=== PATIENT | female | born 1985 | race African-American/Black ===

== ENCOUNTER 2018-05-18 09:52 | Emergency (ER) | payer SELFPAY ==
[~2018-05-18] VITALS: Ht 167.6 cm; Wt 81.6 kg
--- NOTE | 2018-05-18 09:57 | NUR ---
ED Nurse Note: Pt came into the ER w/ complaints of abdominal pain since 0800 this morning. Pt complains of nausea and vomiting. Per pt, she has had 3 episodes of vomiting w/ bright yellow emesis. Pt is rating the pain a 10/10 in the abdominal area. Non radiating. A + O x4. Ambulatory. Skin warm to touch.
[2018-05-18] MEDS ORDERED: NKM (10:01)
[2018-05-18 10:03] VITALS: BP 118/87
[2018-05-18] MEDS ORDERED: Metoclopramide 10mg/2ml Inj IVP ONE (10:15)
[2018-05-18] MEDS ORDERED: Morphine Sulfate 4mg/ml Inj (IV USE ONLY) IVP ONE (10:15)
[2018-05-18] MEDS ORDERED: DiphenhydrAMINE 50mg/ml Inj IVP ONE (10:15)
[2018-05-18 10:31] LABS: BASOPHILS % (AUTO) 1.1 % (0.0-2.0); EOSINOPHILS % (AUTO) 0.6 % (0.0-3.0); HEMATOCRIT 40.2 % (37.0-47.0); MEAN CORPUSCULAR VOLUME 84 FL (80-99); MONOCYTES % (AUTO) 5.4 % (1.0-10.0); NEUTROPHILS % (AUTO) 56.9 % (45.0-75.0); PLATELET COUNT 311 K/UL (150-450); RED BLOOD COUNT 4.81 M/UL (4.20-5.40); RED CELL DISTRIBUTION WIDTH 11.9 % (11.6-14.8); WHITE BLOOD COUNT 11.7 K/UL (4.8-10.8)
[2018-05-18 10:37] LABS: ANION GAP 15 mmol/L (5-15); BLOOD UREA NITROGEN 11 mg/dL (7-18); CALCIUM 8.6 MG/DL (8.5-10.1); CARBON DIOXIDE 23 MMOL/L (21-32); CHLORIDE 107 MMOL/L (98-107); CREATININE 0.9 MG/DL (0.55-1.30); POTASSIUM 3.6 MMOL/L (3.5-5.1); SODIUM 145 MMOL/L (136-145)
[2018-05-18 10:41] LABS: ALANINE AMINOTRANSFERASE 24 U/L (12-78); ALBUMIN 3.5 G/DL (3.4-5.0); ALKALINE PHOSPHATASE 59 U/L (46-116); ASPARTATE AMINO TRANSFERASE 10 U/L (15-37); BILIRUBIN,TOTAL 0.2 MG/DL (0.2-1.0)
[2018-05-18 11:41] LABS: APPEARANCE,URINE CLEAR; BILIRUBIN, URINE NEGATIVE (NEGATIVE); GLUCOSE, URINE (UA) NEGATIVE (NEGATIVE); KETONES,URINE 1+ (NEGATIVE); LEUKOCYTE ESTERASE ,URINE 1+ (NEGATIVE); NITRITE,URINE NEGATIVE (NEGATIVE); PH,URINE 7 (4.5-8.0); PROTEIN,URINE 1+ (NEGATIVE); UROBILINOGEN,URINE 1 MG/DL (0.0-1.0)
[2018-05-18 11:43] LABS: COLOR,URINE YELLOW
--- NOTE | 2018-05-18 12:16 | Emergency Room Report ---
History of Present Illness General Chief Complaint: Abdominal Pain Source: Patient, Family Member Present Illness HPI Patient presents with severe epigastric pain and vomiting which began a few hours ago. Pain is severe, burning aching and epigastric, not radiating. No fevers. She was drinking last night. No vomit blood. She has been constipated. See several weeks ago at walk in. Same pain but not last. Told related to constipation. She was given an Rx for Colace. Not extremely helpful. Not . No family h/o gall stones. No dietary intolerance. No dysuria. No joint pain, headache, dyspnea, chest pain. Allergies: Coded Allergies: No Known Allergies (Unverified , 05/18/18) Patient History Past Medical History: see triage record Social History: Reports: smoking, alcohol use, drug use - THC Social History Narrative with sister Reviewed Nursing Documentation: PMH: Agreed; PSxH: Agreed Nursing Documentation-PM Past Medical History: No Stated History Review of Systems All Other Systems: negative except mentioned in HPI Physical Exam Vital Signs Date Time Temp Pulse Resp B/P (MAP) Pulse Ox O2 Delivery O2 Flow Rate FiO2 05/18/18 09:59 97.5 84 16 118/87 100 Room Air 05/18/18 10:03 100 Sp02 EP Interpretation: reviewed, normal General Appearance: alert, GCS 15, mild distress Head: normocephalic Eyes: bilateral eye normal inspection, bilateral eye PERRL, bilateral eye EOMI ENT: moist mucus membranes Neck: supple Respiratory: lungs clear, normal breath sounds Cardiovascular #1: regular rate, rhythm Cardiovascular #2: 2+ radial (R) Gastrointestinal: normal inspection, normal bowel sounds, no mass, non- distended, no guarding, no rebound, tenderness Genitourinary: no CVA tenderness Musculoskeletal: back normal, normal range of motion Neurologic: alert, oriented x3, grossly normal Psychiatric: anxious Skin: normal inspection, warm/dry Medical Decision Making Diagnostic Impression: Primary Impression: Abdominal pain, acute, epigastric Additional Impressions: Constipation Qualified Codes: K59.00 - Constipation, unspecified Alcohol use ER Course Patient presents with epigastric pain, NV. DDX: pancreatitis, gastritis, gall bladder disease, UTI, GERD amongst others. Evaluation with labs. Consideration for ultrasound if labs suggest gall bladder problem or continued pain. Treatment with IV hydration, Reglan, benadryl, pepcid and morphine. Labs with min elevated WBC, no left shift. LFTs and lipase normal. UA clear. BAL 37. + THC (urine after morphine + opiates). Pain resolved and no vomiting. Tolerate oral intake. Sister upset at no ultrasound. Discussed findings and no indication under this setting with improvement. Also concerned about constipation. I discussed treatment plan and outpatient observation. Patient stable for outpatient observation and treatment. Laboratory Tests Test 05/18/18 10:00 05/18/18 11:00 White Blood Count 11.7 K/UL (4.8-10.8) H Red Blood Count 4.81 M/UL (4.20-5.40) Hemoglobin 13.0 G/DL (12.0-16.0) Hematocrit 40.2 % (37.0-47.0) Mean Corpuscular Volume 84 FL (80-99) Mean Corpuscular Hemoglobin 27.1 PG (27.0-31.0) Mean Corpuscular Hemoglobin Concent 32.4 G/DL (32.0-36.0) Red Cell Distribution Width 11.9 % (11.6-14.8) Platelet Count 311 K/UL (150-450) Mean Platelet Volume 8.2 FL (6.5-10.1) Neutrophils (%) (Auto) 56.9 % (45.0-75.0) Lymphocytes (%) (Auto) 36.0 % (20.0-45.0) Monocytes (%) (Auto) 5.4 % (1.0-10.0) Eosinophils (%) (Auto) 0.6 % (0.0-3.0) Basophils (%) (Auto) 1.1 % (0.0-2.0) Prothrombin Time 10.7 SEC (9.30-11.50) Prothrombin Time INR 1.0 (0.9-1.1) PTT 24 SEC (23-33) Sodium Level 145 MMOL/L (136-145) Potassium Level 3.6 MMOL/L (3.5-5.1) Chloride Level 107 MMOL/L (98-107) Carbon Dioxide Level 23 MMOL/L (21-32) Anion Gap 15 mmol/L (5-15) Blood Urea Nitrogen 11 mg/dL (7-18) Creatinine 0.9 MG/DL (0.55-1.30) Estimate Glomerular Filtration Rate > 60 mL/min (>60) Glucose Level 110 MG/DL (74-106) H Calcium Level 8.6 MG/DL (8.5-10.1) Total Bilirubin 0.2 MG/DL (0.2-1.0) Aspartate Amino Transferase (AST) 10 U/L (15-37) L Alanine Aminotransferase (ALT) 24 U/L (12-78) Alkaline Phosphatase 59 U/L (46-116) Total Protein 6.9 G/DL (6.4-8.2) Albumin 3.5 G/DL (3.4-5.0) Globulin 3.4 g/dL Albumin/Globulin Ratio 1.0 (1.0-2.7) Lipase 63 U/L (73-393) L Human Chorionic Gonadotropin, Qual Negative (NEGATIVE) Serum Alcohol 37 mg/dL Urine Color Yellow Urine Appearance Clear Urine pH 7 (4.5-8.0) Urine Specific [place] 1.015 (1.005-1.035) Urine Protein 1+ (NEGATIVE) H Urine Glucose (UA) Negative (NEGATIVE) Urine Ketones 1+ (NEGATIVE) H Urine Blood 1+ (NEGATIVE) H Urine Nitrite Negative (NEGATIVE) Urine Bilirubin Negative (NEGATIVE) Urine Urobilinogen 1 MG/DL (0.0-1.0) H Urine Leukocyte Esterase 1+ (NEGATIVE) H Urine RBC 0-2 /HPF (0 - 2) Urine WBC 0-2 /HPF (0 - 2) Urine Squamous Epithelial Cells Few /LPF (NONE/OCC) Urine Bacteria Few /HPF (NONE) Urine Mucus Moderate /LPF (NONE/OCC) H Urine Opiates Screen Positive (NEGATIVE) H Urine Barbiturates Screen Negative (NEGATIVE) Phencyclidine (PCP) Screen Negative (NEGATIVE) Urine Amphetamines Screen Negative (NEGATIVE) Urine Benzodiazepines Screen Negative (NEGATIVE) Urine Cocaine Screen Negative (NEGATIVE) Urine Marijuana (THC) Screen Positive (NEGATIVE) H Last Vital Signs Date Time Temp Pulse Resp B/P (MAP) Pulse Ox O2 Delivery O2 Flow Rate FiO2 05/18/18 12:42 98.0 74 16 124/68 99 Room Air 100 Status: improved Disposition: HOME, SELF-CARE Condition: Improved Scripts Ondansetron Odt* (ZOFRAN ODT*) 4 Mg Tab.rapdis 4 MG BC EVERY 8 HOURS, #6 TAB 0 Refills Prov: Erick Chance MD 05/18/18 Lactulose (LACTULOSE*) 20 Gm/30 Ml Solution 30 ML ORAL BID for constipation, #240 ML 0 Refills Prov: Erick Chance MD 05/18/18 Mag Hydrox/Al Hydrox/Simeth (MAALOX MAXIMUM STRENGTH SUSP) 355 Ml Oral.susp 30 ML PO Q6HR, #240 ML Prov: Erick Chance MD 05/18/18 Acetaminophen (Tylenol) 325 Mg Tablet 650 MG ORAL Q6H PRN for Prn Pain/Headache/Temp > 101, #20 TAB 0 Refills Prov: Erick Chance MD 05/18/18 Famotidine (PEPCID AC) 20 Mg Tablet 20 MG PO DAILY, #30 TAB Prov: Erick Chance MD 05/18/18 Referrals: NOT CHOSEN KAYLEE/,REFERRING (PCP) Erick Chance MD May 18, 2018 12:16
[2018-05-18] MEDS ORDERED: PEPCID AC20 M2 PO (12:22)
[2018-05-18] MEDS ORDERED: TYLENOL325 MG ORAL (12:22)
[2018-05-18] MEDS ORDERED: MAALOX MAXIMUM355 M1 PO (12:22)
[2018-05-18] MEDS ORDERED: LACTULOSE20 GM/301 ORAL (12:22)
[2018-05-18] MEDS ORDERED: ONDANSETRON ODT4 MG BC (12:22)
[2018-05-18 12:42] VITALS: BP 124/68
--- NOTE | 2018-05-18 12:42 | NUR ---
ED Nurse Note: Pt cleared by health care Provider for discharge. DC instructions/prescription was given and explained to pt and verbalized understanding of teachings. All medical deviecs such as ID band removed. Pt is AAO x4, ambulatory and left with all personal belongings.
== END 2018-05-18 12:42 | disposition home or self-care (01) ==
LOC: EMR 10:22
DX: R10.13 Epigastric pain (principal); K59.00 Constipation, unspecified; F12.10 Cannabis abuse, uncomplicated; F10.10 Alcohol abuse, uncomplicated; F17.200 Nicotine dependence, unspecified, uncomplicated
CPT/HCPCS: 36415; 80053; 80307; 81003; 83690; 84703; 85025; 85610; 85730; 96361; 96374; 96375; 99284; G0480; J1200; J2270; J2765; S0028; 80329

== ENCOUNTER 2019-01-31 22:58 | Emergency (ER) | payer SELFPAY ==
[~2019-01-31] VITALS: Ht 167.6 cm; Wt 79.8 kg
[~2019-01-31 22:58] MED LIST: LACTULOSE20 GM/301 ORAL; MAALOX MAXIMUM355 M1 PO; NKM; ONDANSETRON ODT4 MG BC; PEPCID AC20 M2 PO; TYLENOL325 MG ORAL
[2019-01-31] MEDS ORDERED: NKM (23:09)
[2019-01-31 23:10] VITALS: BP 139/96
--- NOTE | 2019-01-31 23:24 | Emergency Room Report ---
History of Present Illness General Chief Complaint: Abdominal Pain Source: Patient Present Illness HPI This is a 33-year-old female with no past medical history. She presents for treatment of abdominal pain. Pain is localized to the lower abdomen. Pain is sharp in nature. Onset this morning. Has 2 bowel movement already. [place] nauseous but no vomiting. Pain is 9 out of 10. Worse with palpation and movement. No fever chills. No urinary complaint. Allergies: Coded Allergies: No Known Allergies (Unverified , 05/18/18) Patient History Past Medical History: see triage record, old chart reviewed Past Surgical History: none Pertinent Family History: none Social History: Denies: smoking Last Menstrual Period: 01/09/19 Now: No Immunizations: other Reviewed Nursing Documentation: PMH: Agreed; PSxH: Agreed Nursing Documentation-PMH Past Medical History: No Stated History Review of Systems Eye: Denies: eye pain, blurred vision ENT: Denies: ear pain, nose congestion, throat swelling Respiratory: Denies: cough, shortness of breath Cardiovascular: Denies: chest pain, palpitations Gastrointestinal: Reports: abdominal pain, nausea; Denies: diarrhea, vomiting Musculoskeletal: Denies: back pain, joint pain Skin: Denies: rash Neurological: Denies: headache, numbness Endocrine: Denies: increased thirst, increased urine Hematologic/Lymphatic: Denies: easy bruising All Other Systems: negative except mentioned in HPI Physical Exam Vital Signs Date Time Temp Pulse Resp B/P (MAP) Pulse Ox O2 Delivery O2 Flow Rate FiO2 01/31/19 23:04 98.2 57 17 119/67 (84) 100 Room Air Vitals normal Sp02 EP Interpretation: reviewed, normal General Appearance: well appearing, no apparent distress, alert Head: normocephalic, atraumatic Eyes: bilateral eye PERRL, bilateral eye EOMI ENT: hearing grossly normal, normal pharynx Neck: full range of motion, supple, no meningismus Respiratory: chest non-tender, lungs clear, normal breath sounds Cardiovascular #1: regular rate, rhythm, no murmur Gastrointestinal: no mass, no organomegaly, no bruit, non-distended, tenderness - Lower abdomen, decreased bowel sounds Musculoskeletal: back normal, normal range of motion, gait/station normal Psychiatric: mood/affect normal Medical Decision Making Diagnostic Impression: Primary Impression: Ovarian mass, right Additional Impressions: Abdominal pain Qualified Codes: R10.30 - Lower abdominal pain, unspecified UTI (urinary tract infection) Qualified Codes: N30.00 - Acute cystitis without hematuria ER Course Patient with abdominal pain. CT scan and ultrasound show that she has a large pelvic mass. Ultrasound showed what is being from the right ovary. The size is causing some obstruction from the right ureter. This may increase her risk for urinary tract infection. Antibiotics given here. No evidence of any torsion. It turned out that she just recently took Plan B and states she is about to start her menstruation. Rhythm Strip Diag. Results EP Interpretation: yes Rate: 64 Rhythm: NSR, no PVC's, no ectopy CT/MRI/US Diagnostic Results CT/MRI/US Diagnostic Results #1: Imaging Test Ordered: CT abdomen and pelvis Impression Read by radiologist. Large 12 x 16 cm cystic mass occupying the mid to lower abdomen with some calcification along the wall. Ureter is mildly dilated compared to the left. This may be secondary to mass-effect. CT/MRI/US Diagnostic Results #2: Imaging Test Ordered: Ultrasound Impression Read by care clinician. Large right ovarian cysts with calcification. Bilateral flow. Last Vital Signs Date Time Temp Pulse Resp B/P (MAP) Pulse Ox O2 Delivery O2 Flow Rate FiO2 01/31/19 23:04 98.2 57 17 119/67 (84) 100 Room Air Status: improved Disposition: HOME, SELF-CARE Condition: Stable Scripts Ibuprofen* (MOTRIN*) 600 Mg Tablet 600 MG ORAL THREE TIMES A DAY, #30 TAB 0 Refills Prov: Donny Hoyt MD 02/01/19 Cephalexin* (KEFLEX*) 500 Mg Capsule 500 MG ORAL TID, #21 CAP Prov: Donny Hoyt MD 02/01/19 Hydrocodone/Acetaminophen 5-325* (HYDROCODONE/ACETAMINOPHEN 5-325*) 1 Each Tablet 1 TAB ORAL Q6H PRN for For Pain, #15 TAB 0 Refills Prov: Donny Hoyt MD 02/01/19 Additional Instructions: Follow-up with your doctor in 2 3 days. You will need a referral to see a crew supervisor regarding your ovarian mass. Return if symptoms worsen. Donny Hoyt MD Jan 31, 2019 23:24
[2019-01-31] MEDS ORDERED: Ketorolac 30mg Inj IV ONE (23:30)
[2019-01-31] MEDS ORDERED: Morphine Sulfate 4mg/ml Inj (IV USE ONLY) IVP ONE ×2 (23:30→23:45)
[2019-01-31 23:35] LABS: APPEARANCE,URINE SLIGHTLY CLOUDY; BILIRUBIN, URINE NEGATIVE (NEGATIVE); GLUCOSE, URINE (UA) NEGATIVE (NEGATIVE); KETONES,URINE 2+ (NEGATIVE); LEUKOCYTE ESTERASE ,URINE NEGATIVE (NEGATIVE); NITRITE,URINE NEGATIVE (NEGATIVE); PH,URINE 6 (4.5-8.0); PROTEIN,URINE 1+ (NEGATIVE); UROBILINOGEN,URINE 1 MG/DL (0.0-1.0)
[2019-01-31 23:36] LABS: COLOR,URINE YELLOW
[2019-01-31] MEDS ORDERED: Morphine Sulfate 4mg/ml Inj (IV USE ONLY) ONE (23:45)
[2019-01-31 23:50] LABS: BASOPHILS % (AUTO) 0.8 % (0.0-2.0); EOSINOPHILS % (AUTO) 0.6 % (0.0-3.0); HEMATOCRIT 41.4 % (37.0-47.0); HEMOGLOBIN 13.8 G/DL (12.0-16.0); MEAN CORPUSCULAR VOLUME 84 FL (80-99); MONOCYTES % (AUTO) 5.6 % (1.0-10.0); PLATELET COUNT 318 K/UL (150-450); RED BLOOD COUNT 4.96 M/UL (4.20-5.40); RED CELL DISTRIBUTION WIDTH 11.7 % (11.6-14.8); WHITE BLOOD COUNT 14.6 K/UL (4.8-10.8)
[2019-02-01] LABS: ANION GAP 8 mmol/L (5-15); BLOOD UREA NITROGEN 23 mg/dL (7-18); CALCIUM 9.3 MG/DL (8.5-10.1); CARBON DIOXIDE 28 MMOL/L (21-32); CHLORIDE 103 MMOL/L (98-107); CREATININE 1.3 MG/DL (0.55-1.30); POTASSIUM 3.7 MMOL/L (3.5-5.1); SODIUM 139 MMOL/L (136-145)
[2019-02-01 00:04] LABS: ALANINE AMINOTRANSFERASE 26 U/L (12-78); ALBUMIN 4.1 G/DL (3.4-5.0); ALBUMIN/GLOBULIN RATIO 1.2 (1.0-2.7); ALKALINE PHOSPHATASE 63 U/L (46-116); ASPARTATE AMINO TRANSFERASE 12 U/L (15-37); BILIRUBIN,TOTAL 0.4 MG/DL (0.2-1.0)
[2019-02-01] MEDS ORDERED: cefTRIAXone 1 GM in NS 55 ML IVPB ONE (01:30)
--- NOTE | 2019-02-01 01:30 | Diagnostic Imaging Report ---
EXAM: CT Abdomen and Pelvis Without Intravenous Contrast CLINICAL HISTORY: ABD PAIN TECHNIQUE: Axial computed tomography images of the abdomen and pelvis without intravenous contrast. CTDI is 22 mGy and DLP is 1218 mGy-cm. One or more of the following dose reduction techniques were used: automated exposure control, adjustment of the mA and/or kV according to patient size, use of iterative reconstruction technique. COMPARISON: No relevant prior studies available. FINDINGS: Lung bases: No mass. No consolidation. ABDOMEN: Liver: Unremarkable. Gallbladder and bile ducts: Unremarkable. Pancreas: No ductal dilation. Spleen: Unremarkable. Adrenals: Unremarkable. Kidneys and ureters: No obstructing stones. Mildly dilated right ureter. Stomach and bowel: No bowel obstruction. No bowel wall thickening. PELVIS: Appendix: No evidence of appendicitis. Bladder: No stones. Reproductive: Large 12 by 16 cm cystic mass occupying the mid to lower abdomen with some calcification along the wall. ABDOMEN and PELVIS: Intraperitoneal space: Mild pelvic free fluid. Bones/joints: No acute fractures. Soft tissues: Unremarkable. Vasculature: No abdominal aortic aneurysm. Lymph nodes: No enlarged lymph nodes. IMPRESSION: 1. Large 12 by 16 cm cystic mass occupying the mid to lower abdomen tiny calcification. This may be arising from the right ovary. There is mild pelvic free fluid. Recommend MRI of the abdomen and pelvis with and without contrast for better characterization. 2. The right ureter is mildly dilated compared to the left. This may be secondary to mass effect on the distal ureter from this large cystic mass.
[2019-02-01 02:01] VITALS: BP 105/51
[2019-02-01] MEDS ORDERED: HYDROmorphone 1mg/ml Carpuject IVP ONE ×2 (03:00)
[2019-02-01] MEDS ORDERED: IBUPROFEN600 MG ORAL (03:02)
[2019-02-01] MEDS ORDERED: HYDROCODON-ACE1 EA15 ORAL (03:02)
[2019-02-01] MEDS ORDERED: CEPHALEXIN500 MG ORAL (03:02)
[2019-02-01 03:33] VITALS: BP 132/82
--- NOTE | 2019-02-02 08:58 | Diagnostic Imaging Report ---
Indication: Pelvic pain, evaluation of abnormal cystic mass demonstrated on recent CT scan. Technique: Transabdominal and transvaginal images of the pelvis. Doppler interrogation of the ovaries Comparison: Abdomen pelvis CT of earlier the same day. Findings: There is a unilocular cystic mass in the central lower abdomen, measuring 7 cm AP by 12 cm transverse by 13 cm craniocaudad. A separate right ovary is demonstrated measuring 5 cm in length but the cystic mass appears to be adjacent to or arising from the right ovary. The uterus measures 6.9 cm length by 2.8 cm AP. The endometrium measures 10 mm thick. The left ovary measures 4.1 cm length. No left ovarian or adnexal mass demonstrated. The left ovary demonstrates normal blood flow. The right ovary also measures normal blood flow. A small amount of free fluid is demonstrated. Impression: Unilocular 12 x 13 x 7 cm cystic mass, likely arising from the right ovary, confirming finding demonstrated on recent CT scan. Recommend gynecological consultation
== END 2019-02-01 03:33 | disposition home or self-care (01) ==
LOC: EMR 02-01 00:01
DX: R10.30 Lower abdominal pain, unspecified (principal); N30.00 Acute cystitis without hematuria; N83.9 Noninflammatory disorder of ovary, fallopian tube and broad ligament, unspecified
CPT/HCPCS: 36415; 74176; 76830; 76856; 80053; 81003; 81025; 83690; 85025; 87086; 96361; 96365; 96375; 96376; 99284; J0696; J1170; J1885; J2270; J2405; J7030